=== PATIENT | female | born 1980 | race Two or more races ===

== ENCOUNTER 2024-11-01 16:48 | Emergency (ER) | payer OTHER ==
[~2024-11-01] VITALS: Ht 170.2 cm; Wt 88.5 kg
[2024-11-01] MEDS ORDERED: KETOROLAC TROMETHAMINE 60 MG VIAL IM ONE ×2 (17:09→17:15)
== END 2024-11-01 18:58 | disposition home or self-care (01) ==
LOC: ER 16:48
DX: R10.2 Pelvic and perineal pain (principal); N83.201 Unspecified ovarian cyst, right side; D21.9 Benign neoplasm of connective and other soft tissue, unspecified